=== PATIENT | male | born 1950 | race Caucasian/White ===

== ENCOUNTER 2019-09-28 13:09 | Outpatient (RCR) | payer OTHER, MEDICARE, SELFPAY | END 2019-10-16 23:59 | disposition home or self-care (01) | LOC: WOUND 13:09 | PROVIDERS: Family Provider Emergency Medicine Emergency Medical Services; PCP Emergency Medicine Emergency Medical Services; Visit Provider Nurse Practitioner Family | DX: E11.621 Type 2 diabetes mellitus with foot ulcer (principal); L97.512 Non-pressure chronic ulcer of other part of right foot with fat layer exposed; I96 Gangrene, not elsewhere classified | CPT/HCPCS: 11042; 87070; 87077; 87176; 87186; 87205; 99203; G0463 ==

== ENCOUNTER 2020-12-06 13:05 | Emergency (ER) | payer OTHER, MEDICARE, SELFPAY ==
[2020-12-06 13:08] VITALS: BP 153/82; PULSE 71; RESP 16; TEMP 36.5; O2SAT 97
--- NOTE | 2020-12-06 14:17 | W.ED.SKABFB ---
HPI - Skin/Abscess/Foreign Bdy General: Chief complaint: Skin/Abscess/Foreign Body Stated complaint: cyst on back Time Seen by Provider: 12/06/20 13:58 Source: patient Mode of arrival: ambulatory Limitations: no limitations History of Present Illness: HPI narrative: 70-year-old male patient presents to the emergency department with cyst on his back. He reports cyst has been present for the past month. He reports, needs to be popped . States cannot reach his back and is causing him tenderness across the shoulder blade. He denies fever chills. Denies history of MRSA. He reports history of sebaceous cyst with surgical removal, states he does not want that done and does not want a referral to a surgeon. He is requesting it to be drained is much as possible and go home. [facility]. Onset (ago): month(s) (1) Tetanus up to date: yes Location: back Associated symptoms: Reports no associated symptoms; Deny chills, fever(s), nausea or vomiting Treatments prior to arrival: none Review of Systems General: Reports: 10 or more systems reviewed and unremarkable except in HPI and below Const: Denies: fever(s), chills or diaphoresis Eyes: Denies: blurry vision or eye redness ENMT: Denies: throat pain, dental pain or disequilibrium Card: Denies: chest pain, palpitations or irregular heart rhythm Resp: Denies: dyspnea, productive cough, non-productive cough or wheezing GI: Denies: abdominal pain, nausea or vomiting : Denies: dysuria Musc: Denies: neck pain, back pain, joint pain or joint warmth Skin/Breast: Reports: skin tenderness and skin swelling; Denies: rash, pruritus, erythema or changes in skin color Neuro: Denies: headache(s), weakness in extremities or behavioral changes Psych: Denies: anxiety or depression Buddy/Lymph: Denies: easy bruising PFSH ED PFSH: Medical History Family history of cancer Family history of coronary artery disease Family history of [place] (myocardial infarction) Family hx of hypertension History of hypertension Hx of chest pain Hx of coronary artery disease Hx of hyperlipidemia Hx of smoking Hx of type 2 diabetes mellitus Surgical History Hx of cholecystectomy Family History Brother CAD (coronary artery disease) Hypertension Cancer Father CAD (coronary artery disease) Hypertension Mother CAD (coronary artery disease) Cancer Social History Smoking and tobacco status: former smoker Alcohol intake: current Alcohol intake frequency: 0-2 Drinks per Day Physical Exam Const: COMMON NORMALS: no acute distress, patient oriented x3, healthy appearing and alert GENERAL APPEARANCE: cooperative, comfortable and well hydrated HENMT: COMMON NORMALS: normocephalic, Normal external nose present and moist oral mucous membranes HEAD & SCALP: normocephalic NOSE: Normal external nose present Eye: COMMON NORMALS: Equal, round and reactive pupils present and EOMs intact bilaterally GENERAL EYE: appearance normal, both eyes and all related structures PUPIL: Yes Equal, round and reactive pupils present Neck/C-Spine: COMMON NORMALS: full ROM and no lymphadenopathy GENERAL: Yes normal visual inspection and Yes trachea midline CERVICAL SPINE: Yes cervical ROM normal Lymph: LYMPHATIC: no lymphadenopathy noted Chest: COMMONS NORMALS: normal inspection of the chest Resp: COMMON NORMALS: normal respiratory effort and clear to auscultation bilaterally AUSCULTATION: clear to auscultation bilaterally Cardio: COMMON NORMALS: regular rhythm, S1 normal heart sound present and S2 normal heart sound present RHYTHM: regular rhythm HEART SOUNDS: S1 normal heart sound present and S2 normal heart sound present GI: COMMON NORMALS: Soft to palpation and non-tender INSPECTION: Yes normal to inspection PALPATION: Yes Soft to palpation : COMMON NORMALS: Yes no CVA tenderness BLADDER/KIDNEY EXAM: Yes no CVA tenderness Back/Pelvis: COMMON NORMALS: no CVA tenderness, thoracic and lumbar spine normal to inspection, no thoracic nor lumbar tenderness, thoraco-lumbar ROM normal and straight leg raise negative bilaterally Extremity: COMMON NORMALS: normal to inspection and capillary refill normal Neuro: COMMON NORMALS: patient oriented x3 and no focal motor deficits SENSORIUM/ORIENTATION: Yes alert Psych: COMMON NORMALS: mental status grossly normal, Normal thought process present and cooperative ACTIVITY/MOTOR BEHAVIOR: Yes appropriate eye contact THOUGHT PROCESS: Normal thought process present Skin: COMMON NORMALS: turgor normal, no petechiae and no mottling GENERAL SKIN EXAM: elasticity normal and turgor normal LESIONS: lesion noted (2cm x 4 cm raised, soft, induration, to the rt upper back) OTHER: No erythema noted to the sebaceous cyst, purulent thick odorous discharge noted consistent with sebaceous cyst findings. Procedures Abscess I/D Site: back Side (if applicable): right Local Anesthetic: lidocaine 1% and with epi Amount of anesthesia used (mL): 3 Technique: incised with #11 blade (moderate exudate retreived, sac not removed, drained per patient request) Irrigation: Yes Packing used?: none Course ED course: Patient declined removal of the sac here in the ED, he declined surgical referral. I advised patient need for dermatology follow-up to ensure sebaceous cyst does not recur. Referral to social media marketer for dermatology follow-up completed. Vital Signs: Vital signs: Vital Signs Temperature 97.7 F 12/06/20 13:08 Pulse Rate 71 12/06/20 13:08 Respiratory Rate 16 12/06/20 13:08 Blood Pressure 153/82 12/06/20 13:08 Pulse Oximetry 97 12/06/20 13:08 Discharge Plan Discharge Patient Disposition: Home Clinical Impression: Sebaceous cyst Condition: Stable Prescriptions: No Action carvedilol 12.5 mg tablet 12.5 mg PO BID RF: 0 simvastatin 80 mg tablet 80 mg PO DAILY RF: 0 cholecalciferol (vitamin D3) 50 mcg (2,000 unit) tablet 50 mcg PO DAILY RF: 0 multivitamin Tablet 1 tab PO DAILY RF: 0 metformin 500 mg tablet 500 mg PO DAILY RF: 0 lisinopril 40 mg tablet 40 mg PO DAILY RF: 0 clopidogrel [Plavix] 75 mg tablet 75 mg PO DAILY RF: 0 Discharge Orders: Discharge ED (Routine); Ordered 12/06/20 Ordered By: Ling Pugh Referrals: Juan Jose Valerio DO [Primary Care Provider] - Discharge Diet: Usual diet Discharge Activity: Resume usual activity Patient Instructions: Skin Pseudocyst (ED), Opioid Safety Activity Restrictions/Additional Instructions: creative services designer will contact you with an appointment with Dr. Huitron, dermatology for removal of sebaceous cyst Return to emergency department if you develop redness fever chills or other concerning symptoms Warm moist heat to the affected area several times daily may help with pain Coding Level of Care Code ED Jumpbasting Collar Baster for Chg Fwd Exam Comprehensive
--- NOTE | 2020-12-06 15:06 | DCPLANNER ---
manager consumer insights had message to schedule a follow up appointment for patient with general surgery. manager consumer insights emailed patients information to both Elzbieta and Shea at [facility] General Surgery. Patients information will be printed and reviewed. Clinic will call patient with appointment information.
--- NOTE | 2020-12-07 14:17 | DCPLANNER ---
manager play was contacted by the PR, this referral needs to go to dermatology, not general surgery. manager play contacted general surgery by email to disregard the referral to the clinic. manager play called the dermatology clinic, unable to speak with anyone at this time. A voicemail was left for patient to return case management social worker phone call to schedule the appointment.
--- NOTE | 2020-12-16 13:14 | DCPLANNER ---
facilities manager called the dermatology clinic, unable to speak with anyone at this time, a voicemail was left for clinic to return case management specialist phone call.
--- NOTE | 2020-12-21 14:40 | DCPLANNER ---
Addendum entered by Yesica Perdomo 03/22/21 07:03: Patient had an appointment scheduled for 03.01.[address] Huitron - patient did not attend the appointment. Original Note: route sales manager called the office of Dr. Huitron, anesthesiology faculty, to confirm if a follow up appointment had been scheduled for patient. A follow up appointment was scheduled for Monday March 01, [address] at 9:[address] Huitron. route sales manager called patient and gave patient the appointment information. Patient stated that he would attend appointment.
== END 2020-12-06 14:57 | disposition home or self-care (01) ==
PROVIDERS: Emergency Provider Nurse Practitioner Family; PCP Emergency Medicine Emergency Medical Services
DX: L72.3 Sebaceous cyst (principal); Z79.02 Long term (current) use of antithrombotics/antiplatelets; Z79.84 Long term (current) use of oral hypoglycemic drugs; I10 Essential (primary) hypertension; I25.10 Atherosclerotic heart disease of native coronary artery without angina pectoris; E78.5 Hyperlipidemia, unspecified; E11.9 Type 2 diabetes mellitus without complications; Z87.891 Personal history of nicotine dependence
CPT/HCPCS: 99282

== ENCOUNTER → 2022-03-27 14:18 | Outpatient (BNVA) | payer OTHER, MEDICARE, SELFPAY | PROVIDERS: PCP Emergency Medicine Emergency Medical Services; Visit Provider Surgery | DX: L72.0 Epidermal cyst (principal); L08.9 Local infection of the skin and subcutaneous tissue, unspecified | CPT/HCPCS: 10060; 99203 ==

== ENCOUNTER → 2023-01-14 13:59 | Outpatient (BNVA) | payer OTHER, MEDICARE, SELFPAY | PROVIDERS: PCP Emergency Medicine Emergency Medical Services; Referring Provider Emergency Medicine Emergency Medical Services; Visit Provider Internal Medicine | DX: E11.649 Type 2 diabetes mellitus with hypoglycemia without coma (principal); I25.10 Atherosclerotic heart disease of native coronary artery without angina pectoris; Z79.84 Long term (current) use of oral hypoglycemic drugs | CPT/HCPCS: 99204 ==

== ENCOUNTER 2023-05-17 14:21 | Outpatient (CLI) | payer OTHER, MEDICARE, SELFPAY ==
[2023-05-17 15:28] LABS: Estmated Average Glucose 194; Hemoglobin A1C 8.4 % (4.0-6.0)
[2023-05-17 15:49] LABS: Creatinine Urine, Random 111 mg/dL (39-259); Microalbum Creatinine Ratio Ur 18 mg/dL (0-20); Microalbumin Random Urine 2 ug/dL (0-20)
[2023-05-17 15:52] LABS: Alanine Aminotransferase 40 U/L (0-41); Albumin Level 4.2 g/dL (3.5-5.2); Alkaline Phosphatase 148 U/L (40-130); Anion Gap 14.4 (5-19); Aspartate Amino Transferase 37 U/L (0-40); Blood Urea Nitrogen 15 mg/dL (8-23); Calcium 9.6 mg/dL (8.5-10.5); Carbon Dioxide 27 mmol/L (22-29); Chloride 101 mmol/L (98-107); Cholesterol 100 mg/dL (0-200); Globulin 2.4 g/dL (1.3-4.6); Glucose 288 mg/dL (65-115); HDL Cholesterol 27 mg/dL (60-100); LDL Cholesterol Calculated -4 mg/dL (50-129); Osmolality Calculated 297 mOsm/kg (285-295); Potassium 4.4 mmol/L (3.5-5.1); Sodium 138 mmol/L (136-145); Total Bilirubin 0.6 mg/dL (0.15-1.2); Total Protein 6.6 g/dL (6.6-8.7); Triglycerides 383 mg/dL (0-150)
[2023-05-17 15:53] LABS: LDL HDL Ratio -0.15 RATIO (0.00-3.22)
== END 2023-05-17 14:22 | disposition home or self-care (01) ==
LOC: LAB 14:25
PROVIDERS: PCP Emergency Medicine Emergency Medical Services; Visit Provider Internal Medicine
DX: E11.649 Type 2 diabetes mellitus with hypoglycemia without coma (principal)
CPT/HCPCS: 36415; 80053; 80061; 82044; 83036

== ENCOUNTER → 2023-05-27 14:31 | Outpatient (BNVA) | payer OTHER, SELFPAY | PROVIDERS: PCP Emergency Medicine Emergency Medical Services; Visit Provider Internal Medicine | DX: E11.649 Type 2 diabetes mellitus with hypoglycemia without coma; E78.5 Hyperlipidemia, unspecified; Z79.84 Long term (current) use of oral hypoglycemic drugs | CPT/HCPCS: 99214 ==